=== PATIENT | female | born 1975 | race Caucasian/White ===

== ENCOUNTER 2016-12-30 06:10 | Day surgery (SDC) | payer BC ==
[~2016-12-30 06:10] MED LIST: Lactated Ringers 1,000 ML IV SCH; Lidocaine 1%/Sod Bicarbonate in NS 8.4% 1 ML Syringe PRN; Sodium Chloride 0.9% 10 ML Syringe FLUSH PRN
[2016-12-30] MEDS ORDERED: EPINEPHrine 1 MG/ML 30 ML MDV ONE (07:09)
[2016-12-30] MEDS ORDERED: Bupivacaine 0.25% 30 ML SDV ONE (07:10)
--- NOTE | 2016-12-30 07:13 | PCM.PREANE ---
Preanesthetic Assessment - Anesthesia/Transfusion/Family Hx Anesthesia History: Prior Anesthesia Without Reaction Family History of Anesthesia Reaction: No Transfusion History: No Prior Transfusion(s) - Review of Systems General: No Symptoms Pulmonary: No Symptoms Cardiovascular: No Symptoms Gastrointestinal: No symptoms Neurological: No Symptoms Other: Reports: Easy Bruising - Physical Assessment NPO Status Date: 12/29/16 NPO Status Time: 18:30 O2 Sat by Pulse Oximetry: 98 Respiratory Rate: 16 Vital Signs: Last Vital Signs Temp 98.8 F 12/30/16 06:30 Pulse 72 12/30/16 06:30 Resp 16 12/30/16 06:30 BP 133/89 12/30/16 06:30 Pulse Ox 98 12/30/16 06:30 Height: 5 ft 8 in Weight: 101.151 kg ASA Class: 2 Mental Status: Alert & Oriented x3 Airway Class: Mallampati = 1 Dentition: Reports: Normal Dentition Thyro-Mental Finger Breadths: 3 Mouth Opening Finger Breadths: 3 ROM/Head Extension: Full Lungs: Clear to auscultation, Normal respiratory effort Cardiovascular: Regular Rate, Regular Rhythm - Lab Values: Laboratory Last Values Urine HCG, Qual Negative (NEGATIVE) 12/30/16 06:28 MRSA (PCR) Negative 12/24/16 11:26 - Allergies Allergies/Adverse Reactions: Allergies Allergy/AdvReac Type Severity Reaction Status Date / Time Penicillins Allergy Rash Verified 12/29/16 15:19 - Blood Blood Available: No - Acknowledgements Anesthesia Type Planned: General Anesthesia Pt an Appropriate Candidate for the Planned Anesthesia: Yes Alternatives and Risks of Anesthesia Discussed w Pt/Guardian: Yes Pt/Guardian Understands and Agrees with Anesthesia Plan: Yes PreAnesthesia Questionnaire HEENT History: Reports: None Cardiovascular History: Reports: None Respiratory History: Reports: None Gastrointestinal History: Reports: None Genitourinary History: Reports: None 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: Musculoskeletal History: Reports: None Neurological History: Reports: None Psychiatric History: Reports: None Endocrine/Metabolic History: Reports: Obesity/BMI 30+ Hematologic History: Reports: None Immunologic History: Reports: None Oncologic (Cancer) History: Reports: None Dermatologic History: Reports: None - Past Surgical History Head Surgeries/Procedures: Reports: None HEENT Surgical History: Reports: None Cardiovascular Surgical History: Reports: None Respiratory Surgical History: Reports: None GI Surgical History: Reports: None Female Surgical History: Reports: D&C Endocrine Surgical History: Reports: None Neurological Surgical History: Reports: None Musculoskeletal Surgical History: Reports: None Dermatological Surgical History: Reports: None - SUBSTANCE USE Smoking Status *Q: Never Smoker Tobacco Use Within Last Twelve Months: No Second Hand Smoke Exposure: No Days Per Week of Alcohol Use: 0 Recreational Drug Use History: No - HOME MEDS Home Medications: Home Meds Acetaminophen/HYDROcodone [[place] 325-5 MG] 1 - 2 tab PO Q6H PRN #40 tablet 12/30 [Rx] Aspirin 325 mg PO BID #84 tablet 12/30/16 [Rx] - CURRENT (IN HOUSE) MEDS Current Meds: Current Medications Lactated Ringer's (Ringers, Lactated) 1,000 mls @ 125 mls/hr IV ASDIRECTED JEFF Lidocaine/Sodium Bicarbonate (Buffered Lidocaine 1% In Ns 8.4%) 0.25 ml .XX ONETIME PRN PRN Reason: Prior to IV Start Stop: 12/30/16 18:00 Sodium Chloride (Saline Flush) 10 ml FLUSH ASDIRECTED PRN PRN Reason: Keep Vein Open Stop: 12/30/16 18:00
[2016-12-30] MEDS ORDERED: Propofol 200 MG/20 ML SDV ONE (07:22)
[2016-12-30] MEDS ORDERED: Midazolam 1 MG/ML 2 ML SDV ONE (07:22)
[2016-12-30] MEDS ORDERED: Lidocaine 1% 4 ML ONE (07:22)
[2016-12-30] MEDS ORDERED: ceFAZolin 1 GM Vial ONE (07:22)
[2016-12-30] MEDS ORDERED: fentaNYL 250 MCG/5 ML SDV ONE (07:22)
[2016-12-30] MEDS ORDERED: Ondansetron 4 MG/2 ML SDV ONE (07:22)
[2016-12-30] MEDS ORDERED: Dexamethasone 4 MG/ML SDV ONE (07:23)
[2016-12-30] MEDS ORDERED: Lactated Ringers 1,000 ML ONE (07:47)
[2016-12-30] MEDS ORDERED: Ondansetron 4 MG/2 ML SDV IVPUSH PRN (07:52)
[2016-12-30] MEDS ORDERED: fentaNYL 100 MCG/2 ML SDV IVPUSH PRN (07:52)
[2016-12-30] MEDS ORDERED: Meperidine PF 50 MG/ML Syringe IVPUSH PRN (07:52)
[2016-12-30] MEDS ORDERED: HYDROmorphone 1 MG/ML Syringe IVPUSH PRN (07:52)
--- NOTE | 2016-12-30 08:55 | PCM.POSTAN ---
POST ANESTHESIA ASSESSMENT - MENTAL STATUS Mental Status: somnolent - VITAL SIGNS Pulse Rate: 86 SaO2: 97 Resp Rate: 17 Blood Pressure: 144/95 Temperature: 97.5 F - RESPIRATORY Respiratory Status: respiratory rate WNL, airway patent, O2 saturation stable, supplemental oxygen - CARDIOVASCULAR CV Status: pulse rate WNL, blood pressure stable - GASTROINTESTINAL GI Status: no symptoms - PAIN Pain Score: 0 - POST OP HYDRATION Hydration Status: adequate & stable
[2016-12-30 09:59] VITALS: BP 129/86
--- NOTE | 2017-01-05 21:52 | PCM.OPNOTE ---
- General Post-Op/Procedure Note Date of Surgery/Procedure: 12/30/16 Operative Procedure(s): left knee video arthroscopy with medial meniscectomy and chondroplasty of the medial femoral condyle Pre Op Diagnosis: left knee medial meniscus tear Post-Op Diagnosis: same with grade 2 chondromalacia of the medial femoral condyle Anesthesia Technique: General LMA, Local Primary Surgeon: Rodriguez Villasenor Anesthesia Provider: aMrco Verde General Maintenance Engineer: Lexii George in mLs: 5 Complications: None Condition: Good
--- NOTE | 2017-01-05 22:33 | OR ---
DATE OF OPERATION: 12/30/2016 SURGEON: Rodriguez Villasenor MD OPERATION PERFORMED: Left knee video arthroscopy, partial medial meniscectomy and chondroplasty of the medial femoral condyle. PREOPERATIVE DIAGNOSIS: Left knee medial meniscus tear. POSTOPERATIVE DIAGNOSIS: Left knee medial meniscus tear with grade 2 chondromalacia of the medial femoral condyle. ANESTHESIA: General LMA with local. ANESTHESIA PROVIDER: Dr. Con Roman. SUPERSONIC ENGINEER: Lexii George PA-C. ESTIMATED BLOOD LOSS: Less than 5 mL. COMPLICATIONS: None. CONDITION: Stable. DESCRIPTION OF PROCEDURE: The patient was identified in the preop holding area. Proper site was marked and identified by the surgeon. The patient was taken back to the operating theater where after adequate anesthesia, the patient's right lower extremity was placed in a well leg wyman and the left lower extremity was placed in a nonsterile tourniquet and a C-clamp wyman left lower extremity was then sterilely prepped and draped in the usual sterile fashion, OR time-out was performed. The patient received 2 g of IV Ancef. At this time, the left lower extremity exsanguinated, tourniquet was insufflated to 250 mmHg. A standard anterolateral portal was created and the scope trocar was introduced. There was noted to be a grade 1 chondromalacia of the patellofemoral joint. There were no loose foreign bodies. Attention was turned to medial gutter, no loose foreign bodies in the medial gutter. Anteromedial was then created with the use of a spinal needle and the medial compartment was noted to be a large area of grade 2 chondromalacia over a very large portion of the medial femoral condyle, grade 3 in areas. There was a tear of the entire posterior third medial meniscus that was irreparable that was found to be complex and degenerative. At this time, the posterior third of the medial meniscus was then removed, all the way back to the capsule. The rest of the stable meniscus starting at the posterior third all the way anteriorly was kept, it was found to be stable. At this time, ACL was found to be enlarged. Lateral compartment showed fissuring, but otherwise no chondromalacia and no meniscus tear. At this time, adequate saline was rinsed through the knee. A chondroplasty of the medial femoral condyle was then completed back to a smooth border. All instruments were then removed, 3-0 nylon simple suture was used for closure of the skin and the patient had a sterile dressing applied. The patient tolerated the procedure well and sent to PACU in stable condition. FABBY /[id number]
== END 2016-12-30 10:06 | disposition home or self-care (01) ==
LOC: JD.SDS 06:10
PROVIDERS: ATTEND Orthopaedic Surgery
PROC: 0SBD4ZZ Excision of Left Knee Joint, Percutaneous Endoscopic Approach (ICD-10-PCS; principal; 2016-12-30)
DX: S83.232A Complex tear of medial meniscus, current injury, left knee, initial encounter (principal); X50.1XXA Overexertion from prolonged static or awkward postures, initial encounter; Y93.89 Activity, other specified; M94.262 Chondromalacia, left knee; Z88.0 Allergy status to penicillin
CPT/HCPCS: 29881; 81025; 87641; J0171; J0690; J1100; J2250; J2405; J3010; J7120; 01400; J2704; J3490

== ENCOUNTER 2021-01-05 06:40 | Day surgery (SDC) | payer OTHER ==
[~2021-01-05 06:40] MED LIST changes: +Acetaminophen 325 MG Tab PO SCH; +Lidocaine 1%/Sod Bicarbonate in NS 8.4% 1 ML Syringe IDERM PRN; -Lidocaine 1%/Sod Bicarbonate in NS 8.4% 1 ML Syringe PRN; +Pregabalin 25 MG Cap PO SCH; +oxyCODONE ER 10 MG TAB.ER PO SCH
--- NOTE | 2021-01-05 07:26 | PCM.PREANE ---
Preanesthetic Assessment - Procedure Proposed Procedure: Left total knee arthroplasty - Anesthesia/Transfusion/Family Hx Anesthesia History: Prior Anesthesia Without Reaction Family History of Anesthesia Reaction: No Transfusion History: Prior Transfusion Without Reaction - Review of Systems General: No Symptoms Pulmonary: No Symptoms Cardiovascular: No Symptoms Gastrointestinal: No Symptoms Neurological: Difficulty Walking (due to knee) Other: Reports: None - Physical Assessment NPO Status Date: 01/04/21 NPO Status Time: 00:00 Height: 1.7 m Weight: 101.7 kg ASA Class: 2 Mental Status: Alert & Oriented x3 Airway Class: Mallampati = 1 Dentition: Reports: Normal Dentition, [place](s) Thyro-Mental Finger Breadths: 3 Mouth Opening Finger Breadths: 3 ROM/Head Extension: Full Lungs: Clear to Auscultation, Normal Respiratory Effort Cardiovascular: Regular Rate, Regular Rhythm - Imaging/EKG Impressions: EKG SR - Allergies Allergies/Adverse Reactions: Allergies Allergy/AdvReac Type Severity Reaction Status Date / Time Penicillins Allergy Rash Verified 01/02/21 13:50 - Anesthesia Plan Pre-Op Medication Ordered: None - Acknowledgements Anesthesia Type Planned: Spinal Pt an Appropriate Candidate for the Planned Anesthesia: Yes Alternatives and Risks of Anesthesia Discussed w Pt/Guardian: Yes Pt/Guardian Understands and Agrees with Anesthesia Plan: Yes PreAnesthesia Questionnaire HEENT History: Reports: None Cardiovascular History: Reports: None Respiratory History: Reports: None Gastrointestinal History: Reports: None Genitourinary History: Reports: None 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: Musculoskeletal History: Reports: Arthritis, Other (See Below) Other Musculoskeletal History: left knee pain, left meniscus tear Neurological History: Reports: None Psychiatric History: Reports: None Endocrine/Metabolic History: Reports: Obesity/BMI 30+ Hematologic History: Reports: None Immunologic History: Reports: None Oncologic (Cancer) History: Reports: None Dermatologic History: Reports: None - Infectious Disease History Infectious Disease History: Reports: None - Past Surgical History Head Surgeries/Procedures: Reports: None HEENT Surgical History: Reports: None Cardiovascular Surgical History: Reports: None Respiratory Surgical History: Reports: None GI Surgical History: Reports: None Female Surgical History: Reports: D&C Male Surgical History: Reports: None Endocrine Surgical History: Reports: None Neurological Surgical History: Reports: None Musculoskeletal Surgical History: Reports: Arthroscopic Knee, Other (See Below) Other Musculoskeletal Surgeries/Procedures:: hand surgery Oncologic Surgical History: Reports: None Dermatological Surgical History: Reports: None - SUBSTANCE USE Tobacco Use Status *Q: Never Tobacco User Tobacco Use Within Last Twelve Months: No Second Hand Smoke Exposure: No Days Per Week of Alcohol Use: 0 Number of Drinks Per Day: 0 Total Drinks Per Week: 0 Recreational Drug Use History: No - HOME MEDS Home Medications: Home Meds Ascorbate Calcium [Vitamin C] 500 mg PO DAILY 01/02/21 [History] Aspirin [Aspirin EC] 325 mg PO BID #84 tab 01/02/21 [Rx] Cholecalciferol (Vitamin D3) [Vitamin D3] 2,000 unit PO DAILY 01/02/21 [History] Cyclobenzaprine [Flexeril] 10 mg PO BID PRN #20 tab 01/02/21 [Rx] Ferrous Sulfate [Iron] 325 mg PO BID 01/02/21 [History] oxyCODONE 5 - 10 mg PO Q4H PRN #40 tab 01/02/21 [Rx] - CURRENT (IN HOUSE) MEDS Current Meds: Current Medications Acetaminophen (Acetaminophen 325 Mg Tab) 975 mg PO ONETIME JEFF Stop: 01/05/21 16:00 Last Admin: 01/05/21 07:16 Dose: 975 mg Documented by: Morphine Sulfate 8 mg/Epinephrine HCl 0.3 mg/Cefuroxime Sodium 750 mg/Ketorolac Tromethamine 30 mg/Sodium Chloride 7.9 ml 0 mg .XX ASDIRECTED PRN PRN Reason: Pain Stop: 01/05/21 18:00 Lactated Ringer's (Ringers, Lactated) 1,000 mls @ 125 mls/hr IV ASDIRECTED JEFF Stop: 01/05/21 23:00 Last Admin: 01/05/21 07:17 Dose: 125 mls/hr Documented by: Lidocaine/Sodium Bicarbonate (Lidocaine 1%/Sod Bicarbonate In Ns 8.4% 1 Ml Syringe) 0.25 ml IDERM ONETIME PRN PRN Reason: Prior to IV Start Stop: 01/05/21 18:00 Last Admin: 01/05/21 07:17 Dose: 0.25 ml Documented by: Oxycodone HCl (Oxycodone Er 10 Mg Tab.Er) 10 mg PO ONETIME JEFF Stop: 01/05/21 16:00 Last Admin: 01/05/21 07:15 Dose: 10 mg Documented by: Pregabalin (Pregabalin 25 Mg Cap) 50 mg PO ONETIME JEFF Stop: 01/05/21 16:00 Last Admin: 01/05/21 07:16 Dose: 50 mg Documented by: Sodium Chloride (Sodium Chloride 0.9% 10 Ml Syringe) 10 ml FLUSH ASDIRECTED PRN PRN Reason: Keep Vein Open Stop: 01/05/21 18:00
[2021-01-05] MEDS ORDERED: Ondansetron 4 MG/2 ML SDV ONE (07:35)
[2021-01-05] MEDS ORDERED: fentaNYL 100 MCG/2 ML SDV ONE (07:36)
[2021-01-05] MEDS ORDERED: Midazolam 1 MG/ML 2 ML SDV ONE (07:36)
[2021-01-05] MEDS ORDERED: Lidocaine 1% 4 ML ONE (07:36)
[2021-01-05] MEDS ORDERED: Propofol 200 MG/20 ML SDV ONE ×5 (07:36→09:40)
[2021-01-05] MEDS ORDERED: ceFAZolin 1 GM Vial ONE (07:40)
[2021-01-05] MEDS ORDERED: Lactated Ringers 1,000 ML ONE (07:48)
[2021-01-05] MEDS ORDERED: Ropivacaine 0.5% 5 MG/ML 30 ML SDV ONE (07:54)
[2021-01-05] MEDS ORDERED: EPINEPHrine 1 MG/ML SDV ONE (07:54)
[2021-01-05] MEDS: Bupivacaine 0.25% 10 ML SDV ONE ×2 (09:07→09:50)
[2021-01-05] MEDS: Triamcinolone Acetonide 40 MG/ML 1 ML SDV ONE ×2 (09:08→09:50)
[2021-01-05] MEDS: Vancomycin 1 GM SDV ONE ×2 (09:08→09:33)
[2021-01-05] MEDS: Morphine 8 MG, EPINEPHrine 0.3 MG, Cefuroxime 750 MG, Ketorolac 30 MG, Sodium Chloride ... PRN ×10 (09:08→09:24)
[2021-01-05] MEDS ORDERED: Ketorolac 30 MG/ML SDV ONE (10:00)
[2021-01-05] MEDS ORDERED: fentaNYL 100 MCG/2 ML SDV IVPUSH PRN (10:08)
--- NOTE | 2021-01-05 10:09 | PCM.POSTAN ---
POST ANESTHESIA ASSESSMENT - MENTAL STATUS Mental Status: Alert, Oriented - VITAL SIGNS Vital Signs: Last Vital Signs Temp 36.4 C 01/05/21 06:50 Pulse 67 01/05/21 06:50 Resp 12 01/05/21 06:50 BP 121/85 01/05/21 06:50 Pulse Ox 99 01/05/21 06:50 - RESPIRATORY Respiratory Status: Respiratory Rate WNL, Airway Patent, O2 Saturation Stable - CARDIOVASCULAR CV Status: Pulse Rate WNL, Blood Pressure Stable - GASTROINTESTINAL GI Status: No Symptoms - PAIN Pain Score: 0 - POST OP HYDRATION Hydration Status: Adequate & Stable - OBSERVATIONS Free Text/Narrative:: no anesthesia complications noted
--- NOTE | 2021-01-05 10:34 | PCM.SN.2 ---
- Free Text/Narrative Note: Left selective femoral nerve block at the adductor canal for post-procedure pain control under US guidance requested by Dr. Villasenor. Time Out: 1015 Start: 1015 End: 1024 Chart reviewed. Consent signed. Questions answered. Appropriate monitors applied. Time out performed. Left mid-shaft femur identified with ultrasound, scanning medially of femur, the femoral artery in the adductor canal visualized, and the femoral nerve located laterally to the artery. The skin was prepped lateral to the ultrasound probe with chlorahexadine times two. The 21ga 4 insulated block needle was inserted under direct ultrasound guidance into the adductor canal. 25mL of 0.5% ropivacaine with 1:200,000 epinephrine was injected circumferentially around the nerve with intermittent negative aspiration noted. Patient tolerated the procedure well. Sterile technique noted along with sterile gloves, mask, and sterile probe cover. See picture on progress note and vital signs on nurses notes. Block completed in PACU. Timmy Galeano CRNA
[2021-01-05] MEDS ORDERED: Cyclobenzaprine 10 MG Tab PO PRN (10:46)
[2021-01-05] MEDS ORDERED: oxyCODONE 5 MG Tab PO PRN (10:46)
--- NOTE | 2021-01-05 12:49 | PCM48HPAN ---
Post Anesthesia Note - EVALUATION WITHIN 48HRS OF ANESTHETIC Vital Signs in Normal Range: Yes Patient Participated in Evaluation: Yes Respiratory Function Stable: Yes Airway Patent: Yes Cardiovascular Function Stable: Yes Hydration Status Stable: Yes Pain Control Satisfactory: Yes Nausea and Vomiting Control Satisfactory: Yes Mental Status Recovered: Yes Vital Signs: Last Vital Signs Temp 36.3 C 01/05/21 10:45 Pulse 83 01/05/21 10:45 Resp 20 01/05/21 10:45 BP 115/79 01/05/21 10:45 Pulse Ox 98 01/05/21 10:45 - COMMENTS/OBSERVATIONS Free Text/Narrative:: no anesthesia complications noted
--- NOTE | 2021-01-05 13:56 | CR ---
Left knee: AP and crosstable lateral views of the left knee were obtained. Comparison: Prior CT left knee study of 12/24/20. Knee prosthesis is noted. Components are aligned. Underlying bony structures are intact. Patellar prosthesis is also noted. Soft tissue air is noted from the surgical procedure. Impression: 1. Satisfactory appearance of recently placed left knee prosthesis. Diagnostic code #2
[2021-01-05 15:12] VITALS: BP 113/64; PULSE 68
--- NOTE | 2021-01-14 12:50 | PCM.OPNOTE ---
- General Post-Op/Procedure Note Date of Surgery/Procedure: 01/05/21 Operative Procedure(s): left total knee arthroplasty with [employer] robotics with right knee steroid injection Pre Op Diagnosis: bilateral knee osteoarthrosis Post-Op Diagnosis: Same Anesthesia Technique: Local, MAC, Spinal Primary Surgeon: Rodriguez Villasenor Anesthesia Provider: Timmy Galeano Negative Turner Apprentice: Lexii George Negative Turner Apprentice: Anali Bueno EBL in mLs: 5 Complications: None Condition: Good Free Text/Narrative:: 09/28 10mm 32x10 cemented
--- NOTE | 2021-01-14 13:13 | OR ---
DATE OF OPERATION: 01/05/2021 SURGEON: Rodriguez Villasenor MD OPERATION PERFORMED: Left total knee arthroplasty with [employer] Tae robotics with right knee steroid injection. PREOPERATIVE DIAGNOSIS: Bilateral knee osteoarthrosis. POSTOPERATIVE DIAGNOSIS: Bilateral knee osteoarthrosis. ANESTHESIA: Local MAC with spinal. ANESTHESIA PROVIDER: Timmy Galeano CRNA ASSISTANTS: Lexii George PA-C; and Anali Bueno LPN. ESTIMATED BLOOD LOSS: 5 mL. COMPLICATIONS: None. CONDITION: Stable. IMPLANTS: 1. Ashly size 4 cemented PS femur. 2. [place] size 4 cemented [place] tibial baseplate. 3. Ashly size 4, 10 mm PS X3 polyethylene. 4. [place] size 32 x 10 mm cemented asymmetric patella. DESCRIPTION OF PROCEDURE: The patient was identified in the preop holding area. Proper site was marked and identified by the surgeon. The patient was taken back to the operating theater where after adequate anesthesia, the patient's left lower extremity had a nonsterile tourniquet applied and it was sterilely prepped and draped in the usual sterile fashion. OR time-out was performed. The patient received 2 g IV Ancef . Leg wyman was then applied to the left lower extremity. At this time, the left lower extremity was exsanguinated. Tourniquet was insufflated to 250 mmHg . Standard anterior incision was made. Medial parapatellar arthrotomy was created. Deep fibers of the MCL were raised as well as anterior fat pad was resected. Attention was turned to the patella. Patella measured 24 mm; it was resected to 14 mm for 32 x 10 mm patella. Drill holes were then drilled. Attention was then turned to the femur. Two 4.0 pins were placed intra- incisionally for the Ashly Tae robotic array and then 2 more were placed on the tibia 3 fingerbreadths below the tibial tubercle. The [place] Tae robotic arrays were placed on both the femur and the tibia then at this time as well as checkpoints on the femur and tibia. Hip center rotation was then obtained. The medial and lateral malleoli were marked. At this time, 40 points were obtained off the femur and the tibia for the [place] Tae robotic plan. The patients knee was brought to full extension. Varus and valgus stresses were applied and then into 90 degrees of flexion with a curved osteotome. Varus and valgus stresses were applied. At this time, [employer] robotic plan was done to 19 mm gaps in both flexion and extension. Ashly Mako robotic arm was then brought in. A straight saw blade was then used for the tibial cut, the anterior femoral cut, the anterior chamfer cut, and the posterior femoral cut. All bony fragments were removed. Saw blade was then switched out and the distal femoral cut as well as the posterior chamfer cut was completed. At this time, medial and lateral menisci were resected as well as any posterior osteophytes. A size 4 mm trial tibia was then placed, size 4 mm trial femur was placed, and a size 4, 10 mm PS X3 polyethylene trial liner was placed. The patient's knee was brought to full extension and flexion. Varus and valgus stresses were applied, was found to be stable with no instability. No signs of liftoff or loosening were noted. At this time, box cut was completed on the femur. The pins were removed from the femur and the tibia as well as the arrays and the checkpoints. Cement was mixed on the back table. All cut surfaces were irrigated with pulse lavage irrigation with Ancef and then completely dried. Once the cement was ready, the Ashly size 4 mm cemented [place] tibial base plate having been previously stamped and drilled, was then cemented in place on the tibia. The Ashly size 4 mm cemented femur was cemented into place. The patient had a Ashly size 4, 10 mm PS X3 polyethylene insert placed. The patient's knee was brought to full extension. Excess cement was removed. A Ashly size 32 x 10 mm cemented asymmetric patella was then cemented into place. 1 L of pulse lavage irrigation with Ancef was irrigated through the knee along with 400 mL of Irrisept irrigation. Periarticular injection was completed. Topical tranexamic acid and vancomycin powder were applied. A #2 barbed suture was used for closure of the medial parapatellar arthrotomy in flexion. 2-0 Vicryl and Stratafix were used for subcutaneous closure. Prineo was used for cutaneous closure. The patient had a sterile soft dressing applied. The tibial holes were closed with nylon, and this was also covered with a sterile soft dressing. The patient had an ELISSA wrap applied and was sent to PACU in stable condition. The patient tolerated the procedure well. After this was completed and under sterile technique, 2 mL of 40 mg Kenalog and 4 mL of 0.25% Marcaine were injected to right knee. The patient tolerated all procedures well. FABBY /[id number]
== END 2021-01-05 13:20 | disposition home or self-care (01) ==
LOC: JD.SDS 06:40
PROVIDERS: ATTEND Orthopaedic Surgery
DX: M17.0 Bilateral primary osteoarthritis of knee (principal); G89.29 Other chronic pain; D64.9 Anemia, unspecified; E66.9 Obesity, unspecified; Z68.36 Body mass index [BMI] 36.0-36.9, adult; Z80.0 Family history of malignant neoplasm of digestive organs
CPT/HCPCS: 20610; 27447; 73560; 81025; 97116; 97161; A9270; C1713; C1776; J0171; J0690; J0697; J1885; J2250; J2270; J2405; J2704; J2795; J3010; J3301; J3370; J3490; J7120; 01402; 64450; 76942